=== PATIENT | female | born 1970 | race Caucasian/White ===

== ENCOUNTER 2024-09-04 12:22 | Emergency (ER) | payer BC ==
[2024-09-04] MEDS ORDERED: Proparacaine 0.5% Opth 15 ML BOT ONE (12:37)
[2024-09-04] MEDS ORDERED: Fluorescein Opthalmic Strip ONE (12:37)
== END 2024-09-04 14:51 | disposition home or self-care (01) ==
LOC: ERS 12:22
DX: S01.111A Laceration without foreign body of right eyelid and periocular area, initial encounter (principal); I10 Essential (primary) hypertension; W22.8XXA Striking against or struck by other objects, initial encounter
CPT/HCPCS: 99283